=== PATIENT | male | born 1965 | race African-American/Black ===

== ENCOUNTER 2023-11-26 21:33 | Emergency (ER) | payer BC ==
[~2023-11-26] VITALS: Ht 170.2 cm; Wt 127.0 kg
[2023-11-26 22:07] VITALS: O2SAT 98
[2023-11-26 23:20] LABS: BASOPHILS % 0.5 % (0.0-2.0); DIFFERENTIAL COMMENT 0; EOSINOPHILS % 1.8 % (0.0-5.0); HEMATOCRIT. 44.6 % (42.0-52.0); HEMOGLOBIN. 13.8 g/dL (14.0-18.0); LYMPHOCYTES % 30.4 % (20.0-50.0); MEAN CORPUSCULAR HEMOGLOBIN 24.2 pg (28.0-32.0); MEAN CORPUSCULAR VOLUME 78.3 fL (80.0-94.0); MEAN PLATELET VOLUME 9.1 fl (7.4-10.4); MONOCYTES % 13.6 % (2.0-8.0); NEUTROPHILS % 53.7 % (40.0-76.0); PLATELET 286 x1000/uL (130-400); RED CELL DISTRIBUTION WIDTH 14.7 % (11.6-14.6)
[2023-11-26 23:31] LABS: CARBON DIOXIDE 22 mEq/L (21-32); CHLORIDE 110 mEq/L (98-107); POTASSIUM 4.1 mEq/L (3.5-5.1); SODIUM 141 mEq/L (136-145)
[2023-11-26 23:32] LABS: CALCIUM 8.7 mg/dL (8.7-10.4)
[2023-11-26 23:36] LABS: CREATININE 1.2 mg/dL (0.6-1.3)
[2023-11-26 23:37] LABS: GLUCOSE 156 mg/dL (70-105); UREA NITROGEN BLOOD 35 mg/dL (9-23)
[2023-11-26 23:38] LABS: ALANINE AMINOTRANSFERASE 18 IU/L (10-49)
[2023-11-26 23:39] LABS: ALBUMIN 3.5 g/dL (3.2-4.8); ASPARTATE AMINOTRANSFERASE 15 IU/L (<34); BILIRUBIN DIRECT 0.2 mg/dL (<=3.0); BILIRUBIN TOTAL 0.6 mg/dL (0.1-1.0); PROTEIN TOTAL 6.1 g/dL (6.0-8.3)
[2023-11-27] MEDS: ONDANSETRON HCL 4MG/2ML INJ IV ONE (00:30)
[2023-11-27] MEDS: PANTOPRAZOLE SODIUM 40 MG/VIAL IV NR (00:30)
[2023-11-27 01:22] LABS: HEMATOCRIT 43.9 % (42.0-52.0); HEMOGLOBIN 13.6 g/dL (14.0-18.0); MEAN CORPUSCULAR HEMOGLOBIN 24.3 pg (28.0-32.0); MEAN CORPUSCULAR VOLUME 78.3 fL (80.0-94.0); PLATELET 265 x1000/uL (130-400); RED CELL DISTRIBUTION WIDTH 14.7 % (11.6-14.6); WHITE BLOOD COUNT 11.6 x1000/uL (4.5-11.0)
[2023-11-27] MEDS ORDERED: ONDA4TAB11 PO (02:09)
[2023-11-27] MEDS ORDERED: PROT40 MT (02:09)
[2023-11-27] MEDS: SUCRALFATE 1G TABLET PO SCH (02:15)
[2023-11-27] MEDS: PANTOPRAZOLE 40MG DR TABLET PO ONE (02:15)
[2023-11-27] MEDS: ONDANSETRON 4MG ODT PO ONE (02:15)
[2023-11-27 02:31] VITALS: BP 133/66; PULSE 105; RESP 15; TEMP 98.2
== END 2023-11-27 02:20 | disposition home or self-care (01) ==
LOC: ER 21:33
DX: K92.0 Hematemesis (principal); R07.9 Chest pain, unspecified
CPT/HCPCS: 36415; 80048; 80076; 85025; 85027; 86850; 86900; 93005; 99284